=== PATIENT | male | born 1955 | race Two or more races ===

== ENCOUNTER 2018-12-21 01:07 | Emergency (ER) | payer BC, OTHER ==
[~2018-12-21] VITALS: Ht 167.6 cm; Wt 65.9 kg
[2018-12-21 01:16] VITALS: BP 122/75
[2018-12-21] MEDS ORDERED: ALBU8HFA IH (01:25)
== END 2018-12-21 03:18 | disposition left against medical advice (07) ==
LOC: EMS 01:09
DX: Z53.21 Procedure and treatment not carried out due to patient leaving prior to being seen by health care provider (principal)